=== PATIENT | female | born 1985 | race Caucasian/White ===

== ENCOUNTER 2018-11-16 05:04 | Inpatient (IN) | payer BC ==
[2018-11-16] VITALS (64 sets, daily range): BP systolic 102–142; BP diastolic 60–94
[~2018-11-16] VITALS: Ht 170.2 cm; Wt 93.9 kg
--- NOTE | 2018-11-16 05:10 | NUR ---
JOSIANE ANNA presented to unit via ambulatory from ED, accompanied by s.o , for INDUCTION. JOSIANE ANNA weighed, gowned, voided, and to bed. EFHM and TOCO applied, VS taken. JOSIANE ANNA oriented to bed controls, call light, TV, heat, and A/C controls.
[2018-11-16] MEDS ORDERED: LEVE500T99 PO (05:15)
[2018-11-16] MEDS ORDERED: PREN-53 PO (05:16)
[2018-11-16] MEDS ORDERED: MINERAL OIL CONCENTRATE 99.9% 15 ML UDC TOP PRN (05:30)
[2018-11-16 06:08] LABS: BASOPHILS % (AUTO) 0 % (0-10); EOSINOPHILS # (AUTO) 0.2 10^3/uL (0.0-0.3); EOSINOPHILS % (AUTO) 2 % (0-10); HEMATOCRIT 37 % (35-52); HEMOGLOBIN 12.5 G/DL (11.5-16.0); LYMPHOCYTES # (AUTO) 1.4 X 10^3 (1.0-4.0); LYMPHOCYTES % (AUTO) 15 % (12-44); MEAN CORPUSCULAR HEMOGLOBIN 29 PG (25-34); MEAN CORPUSCULAR HGB CONC 34 G/DL (32-36); MEAN CORPUSCULAR VOLUME 88 FL (80-99); MONOCYTES # (AUTO) 1.1 X 10^3 (0.0-1.0); MONOCYTES % (AUTO) 12 % (0-12); NEUTROPHILS # (AUTO) 6.6 X 10^3 (1.8-7.8); NEUTROPHILS % (AUTO) 71 % (42-75); PLATELET COUNT 301 10^3/uL (130-400); RED BLOOD COUNT 4.24 10^6/uL (4.35-5.85); RED CELL DISTRIBUTION WIDTH 14.5 % (10.0-14.5); WHITE BLOOD COUNT 9.2 10^3/uL (4.3-11.0)
--- NOTE | 2018-11-16 06:22 | NUR ---
Dr. Zarate called and notified of arrival of induction.
[2018-11-16] MEDS: D5 LR IV SOLUTION 1,000 ML IV SCH ×2 (06:38→14:27)
[2018-11-16] MEDS ORDERED: OXYTOCIN/NORMAL SALINE 500 ML IV ONE (07:14)
--- NOTE | 2018-11-16 07:24 | History & Physical-OB/GYN ---
History of Present Illness History of Present Illness Reason for visit/HPI Scheduled Induction of Labor at 39 weeks Date of Admission Nov 16, 2018 at 05:04 Date Seen by a Provider: Nov 16, 2018 Time Seen by a Provider: 07:10 I consulted on this patient on 11/16/18 07:19 Attending Physician Chandra Zarate DO Admitting Physician Chandra Zarate DO Consult Anesthesia for Epidural Allergies and Home Medications Allergies Coded Allergies: lamotrigine (Verified Allergy, Unknown, 11/16/18) Home Medications Docusate Sodium 100 Mg Capsule, 100 MG PO BID Prescribed by: CHANDRA ZARATE on 11/17/18 0739 Ibuprofen 800 Mg Tablet, 800 MG PO Q8HR PRN for PAIN-MILD Prescribed by: CHANDRA ZARATE on 11/17/18 0739 Levetiracetam 500 Mg Tablet, 500 MG PO BID, (Reported) Oxycodone HCl/Acetaminophen 1 Each Tablet, 1 TAB PO Q6H PRN for PAIN-MODERATE Prescribed by: CHANDRA ZARATE on 11/17/18 0739 Und087/Iron Fumarate/FA/Dss 1 Each Tablet, 1 EACH PO DAILY, (Reported) Patient Home Medication List Home Medication List Reviewed: Yes Past Vtapejw-Qgzoel-Vrgirq Hx Patient Social History Marrital Status: single Smoking Status: Never a Smoker Recent Foreign Travel: No Contact w/other who traveled: No Recent Infectious Disease Expo: No Immunizations Up To Date Date of Influenza Vaccine: Jul 16, 2018 Reproductive System Expected Date of Delivery: Nov 23, 2018 Review of Systems Constitutional: malaise, weakness Physical Exam Physical Exam Vital Signs Capillary Refill : Labs Respiratory: Lungs Clear, Normal Breath Sounds, No Respiratory Distress Cardiovascular: Regular Rate, Rhythm Abdominal: normal bowel sounds, non tender, distended (Distended secondary to , FHT 36 cm) Gynecology/General: No pelvic organ prolapse, Other (Cervix 1.5 cm/60%/-3 Vertex/Intact) Labia: WNL Vagina: WNL Cervix: Other (Cervix 1.5 cm/60%/-3 Vertex/Iintact) Cervix OS: open (Cervix 1.5 cm/60%/-3 Vertex/Intact) Uterus: Enlarged (FHT 36 cm) Assessment/Plan Assessment and Plan Intrauterine at 39 weeks 2. History of Epilepsy Admission Diagnosis Admission Status: [facility]nights[facility] Artificial Rupture of Membranes. Epidural anesthesia per patient request. External Monitoring with observation. ) Reason for Inpatient Admission: Vaginal Delivery, uncomplicated CHANDRA ZARATE DO Nov 16, 2018 07:24
[2018-11-16] MEDS ORDERED: OXYTOCIN/NORMAL SALINE 500 ML IV SCH ×2 (07:56→18:56)
--- NOTE | 2018-11-16 09:30 | NUR ---
Dr. Zarate called and update given on pt. No new orders received.
[2018-11-16] MEDS ORDERED: SUFENTA 0.6MCG/ML BUPIVA 0.125 100 ML ONE (10:04)
--- NOTE | 2018-11-16 10:10 | NUR ---
Anesthesia notified of need for epidural.
--- NOTE | 2018-11-16 10:20 | NUR ---
Avinash Bryan CRNA and LENNY MARCUS here for epidural placement. Procedure explained, consent reviewed and signed by anesthesia. Questions answered to patient's satisfaction. Time out taken to verify correct patient/procedure. Patient up to side of bed, assisted into sitting position. Betadine prep done x3 and sterile drape applied. Local done, see anesthesia record. Test dose given, see anesthesia record for drug and dosage. Epidural catheter secured in place. Epidural placement complete. Assisted back into bed, monitors adjusted. Epidural dosed, see anesthesia record. Epidural of Sufenta/Bupvicaine @ 12cc/hr stated per pump. Patient tolerated procedure well.
[2018-11-16] MEDS ORDERED: BUPIVACAINE 0.25% 30 ML (SENSORCAINE) VIAL ONE (10:27)
[2018-11-16] MEDS ORDERED: fentaNYL INJECTION 100 MCG/2 ML AMP ONE (10:27)
[2018-11-16] MEDS ORDERED: NALOXONE 0.4 MG/ML 1 ML (NARCAN) VIAL IV PRN (11:00)
[2018-11-16] MEDS ORDERED: CATHETER FLUSH 10 ML SYR IV PRN (11:00)
[2018-11-16] MEDS ORDERED: LACTATED RINGERS 1,000 ML IV ONE (11:00)
[2018-11-16] MEDS ORDERED: EPIDURAL (SUFENTA 0.6MCG/ML BUPIVA 0.125%) 100 ML BAG EPI SCH (11:00)
--- NOTE | 2018-11-16 11:45 | NUR ---
Dr. Zarate called and update given on pt. No new orders received.
[2018-11-16] MEDS ORDERED: ONDANSETRON 4 MG/2 ML (SDV) Z0FRAN ONE (12:00)
[2018-11-16] MEDS: ONDANSETRON 4 MG/2 ML (SDV) Z0FRAN IVP PRN ×2 (12:05→15:53)
--- NOTE | 2018-11-16 16:10 | NUR ---
Dr. Zarate called and updated on SVE 7cm, variable decelerations with contractions. No new orders received.
[2018-11-16] MEDS ORDERED: LIDOCAINE 1% INJ 20 ML 20 ML VIAL ONE (17:09)
[2018-11-16] MEDS ORDERED: TETANUS,DIPTH,PERTUSS P/F (BOOSTRIX) 0.5 ML VIAL IM ONE (19:00)
[2018-11-16] MEDS ORDERED: BENZOCAINE/MENTHOL (DERMOPLAST) 56 ML CAN TP PRN (19:00)
[2018-11-16] MEDS ORDERED: WITCH HAZEL(TUCKS) 40 EA JAR TOP PRN (19:00)
[2018-11-16] MEDS: IBUPROFEN 800 MG (MOTRIN) TAB PO PRN (20:38)
[2018-11-16] MEDS: DOCUSATE SODIUM 100 MG (COLACE) CAP PO SCH (21:53)
[2018-11-16] MEDS ORDERED: CATHETER FLUSH 10 ML SYR IV SCH (22:00)
[2018-11-16] MEDS: oxyCODONE/APAP 5/325MG (PERCOCET 5) TABLET PO PRN (23:39)
[2018-11-16] MEDS: CATHETER FLUSH 10 ML SYR IV SCH (23:55)
[2018-11-17 04:52] VITALS: BP 122/86
[2018-11-17] MEDS: IBUPROFEN 800 MG (MOTRIN) TAB PO PRN ×2 (04:52→12:36)
[2018-11-17 05:56] LABS: BASOPHILS % (AUTO) 0 % (0-10); EOSINOPHILS # (AUTO) 0.1 10^3/uL (0.0-0.3); EOSINOPHILS % (AUTO) 1 % (0-10); HEMATOCRIT 35 % (35-52); HEMOGLOBIN 11.5 G/DL (11.5-16.0); LYMPHOCYTES # (AUTO) 2.1 X 10^3 (1.0-4.0); LYMPHOCYTES % (AUTO) 16 % (12-44); MEAN CORPUSCULAR HEMOGLOBIN 29 PG (25-34); MEAN CORPUSCULAR HGB CONC 33 G/DL (32-36); MEAN CORPUSCULAR VOLUME 89 FL (80-99); MONOCYTES # (AUTO) 1.2 X 10^3 (0.0-1.0); MONOCYTES % (AUTO) 9 % (0-12); NEUTROPHILS % (AUTO) 74 % (42-75); PLATELET COUNT 256 10^3/uL (130-400); RED BLOOD COUNT 3.95 10^6/uL (4.35-5.85); RED CELL DISTRIBUTION WIDTH 14.5 % (10.0-14.5); WHITE BLOOD COUNT 13.5 10^3/uL (4.3-11.0)
[2018-11-17] MEDS ORDERED: PRENATAL VITAMIN 1 EA TAB PO SCH (07:00)
--- NOTE | 2018-11-17 07:00 | Anesthesia-Regional Post-Op ---
Regional Patient Condition Mental Status: Alert, Oriented x3 Circulation: Same as Pre-Op Headache: Absent Sensation: Full Recovery Motor Block: Absent Post Op Complications Complications None Follow Up Care/Instructions Patient Instructions None needed. Anesthesia/Patient Condition Patient is doing well, no complaints, stable vital signs, no apparent adverse anesthesia problems. No complications reported per nursing. ERASMO ROLAND CRNA Nov 17, 2018 07:00
--- NOTE | 2018-11-17 07:29 | OB Labor & Delivery Record ---
Vag Delivery Note Vag Delivery Note Date of Delivery: 11/17/18 Preoperative Diagnosis: Jennifer Reyes is a (33 /Para / ,Gestational Age (wks)39with [] Postoperative Diagnosis: Same Surgeon: SERVANDO WINN Measurer: [] Anesthesia: []Epidural Delivery Type: []Normal Spontaneous Vaginal Delivery with Midline Episiotomy and Standard Repair Findings: [] Viable [] infant, apgars [], weight [] Lacerations: Intact placenta with 3 vessel cord. No nuchal cord, body cord or shoulder dystocia Estimated Blood Loss: [300] ml Complications: None Condition: Stable Description of Procedure: The patient is a A1. She was admitted for Pitocin Induction of Labor. Informed consent was obtained. Her labor course was remarkable for [] She progressed to complete dilatation and began to push. She was then set up for delivery. The infant's head was delivered atraumatically in the [SERGIO] position. The shoulders and remainder of the ' s body were then delivered without difficulty. Upon delivery, the head was held below the level of the perineum and the mouth and nares were bulb suctioned. The cord was doubly clamped and cut and the was handed off to the pediatric staff. An intact placenta with 3-vessel cord delivered via Janice and there was found to be minimal bleeding.~ Vigorous fundal massage was performed and the fundus was found to be firm. IV oxytocin was given. Examination of the vagina and perineum revealed jthe midline episiotomy which was repaired in the usual fashion with 2-0 and 3-0 vicryl suture. Following the repair, sponge, instrument and needle counts were correct. Mom and baby were both in stable condition in the labor suite. Vitals - Labs Vital Signs - I&O Vital Signs Date Time Temp Pulse Resp B/P (MAP) Pulse Ox O2 Delivery O2 Flow Rate FiO2 11/17/18 04:52 98.4 101 18 122/86 (98) Room Air 11/16/18 23:39 99.2 98 18 119/79 (92) Room Air 11/16/18 20:45 98.5 114 18 125/79 (94) Room Air 11/16/18 20:30 117 18 125/78 (94) Room Air 11/16/18 20:15 112 18 125/78 (94) Room Air 11/16/18 20:00 98.0 117 18 128/79 (95) Room Air 11/16/18 19:45 121 18 122/73 (89) Room Air 11/16/18 19:30 108 18 122/68 (86) Room Air 11/16/18 19:15 98.3 104 18 117/69 (85) Room Air 11/16/18 19:00 110 18 127/77 (94) Room Air 11/16/18 18:45 107 18 127/81 (96) Room Air 11/16/18 18:30 112 18 131/84 (100) Room Air 11/16/18 18:15 107 18 131/83 (99) Room Air 11/16/18 18:00 97.1 108 18 130/69 (89) Room Air 11/16/18 17:45 144 18 128/74 (92) Room Air 11/16/18 17:30 117 18 128/72 (90) Room Air 11/16/18 17:15 98 18 126/75 (92) Non Rebreather 15.00 11/16/18 17:00 90 18 116/72 (87) Non Rebreather 15.00 11/16/18 16:45 105 18 122/74 (90) Non Rebreather 15.00 11/16/18 14:30 96.6 113 16 105/66 (79) Room Air 11/16/18 14:15 102 16 117/68 (84) Room Air 11/16/18 14:00 100 16 118/64 (82) Room Air 11/16/18 13:45 112 16 111/65 (80) Room Air 11/16/18 13:30 109 16 102/61 (75) Room Air 11/16/18 13:15 104 16 112/65 (81) Room Air 11/16/18 13:05 101 16 112/65 (81) Room Air 11/16/18 12:50 107 16 118/70 (86) Room Air 11/16/18 12:30 109 16 118/68 (85) 97 Room Air 11/16/18 12:15 106 16 117/69 (85) 99 Room Air 11/16/18 12:00 106 16 125/69 (87) 100 Room Air 11/16/18 11:43 117 16 106/60 (75) 99 Room Air 11/16/18 11:38 117 16 117/70 (86) 100 Room Air 11/16/18 11:32 101 16 127/70 (89) 100 Room Air 11/16/18 11:28 109 16 124/75 (91) 98 Room Air 11/16/18 11:23 104 16 128/72 (90) 98 Room Air 11/16/18 11:17 115 16 118/75 (89) 99 Room Air 11/16/18 11:15 98 16 120/75 (90) 99 Room Air 11/16/18 11:12 110 16 123/78 (93) 99 Room Air 11/16/18 11:10 100 16 120/70 (87) 99 Room Air 11/16/18 11:06 119 16 121/70 (87) 99 Room Air 11/16/18 11:03 107 16 130/73 (92) 96 Room Air 11/16/18 11:00 97.6 112 18 137/79 (98) 96 Room Air 11/16/18 10:56 111 18 142/84 (103) 99 Room Air 11/16/18 10:53 102 18 134/86 (102) Room Air 11/16/18 10:50 111 20 141/91 (108) 100 Room Air 11/16/18 10:43 107 18 139/75 (96) 99 Room Air 11/16/18 10:40 96 18 140/92 (108) 100 Room Air 11/16/18 10:36 101 20 140/92 (108) Room Air 11/16/18 10:33 99 18 139/94 (109) 100 Room Air 11/16/18 10:30 99 16 132/84 (100) 97 Room Air 11/16/18 10:20 88 16 126/82 (97) Room Air 11/16/18 10:05 93 16 132/85 (101) Room Air 11/16/18 09:50 93 16 127/83 (98) Room Air 11/16/18 09:35 92 16 120/77 (91) Room Air 11/16/18 09:20 88 16 118/74 (89) Room Air 11/16/18 09:05 97.4 100 18 117/75 (89) Room Air 11/16/18 08:50 96 18 126/83 (97) Room Air 11/16/18 08:35 90 18 125/85 (98) Room Air 11/16/18 08:20 88 18 119/86 (97) Room Air 11/16/18 08:05 85 18 119/76 (90) Room Air 11/16/18 07:50 101 18 122/90 (101) Room Air 11/16/18 07:35 91 16 121/85 (97) Room Air I & O 11/17/18 07:00 Intake Total 3300 ml Balance 3300 ml Labs Laboratory Tests 11/17/18 05:22: White Blood Count 13.5H, Red Blood Count 3.95L, Hemoglobin 11.5, Hematocrit 35, Mean Corpuscular Volume 89, Mean Corpuscular Hemoglobin 29, Mean Corpuscular Hemoglobin Concent 33, Red Cell Distribution Width 14.5, Platelet Count 256, Mean Platelet Volume 10.0, Neutrophils (%) (Auto) 74, Lymphocytes (%) (Auto) 16 , Monocytes (%) (Auto) 9, Eosinophils (%) (Auto) 1, Basophils (%) (Auto) 0, Neutrophils # (Auto) 10.0H, Lymphocytes # (Auto) 2.1, Monocytes # (Auto) 1.2H, Eosinophils # (Auto) 0.1, Basophils # (Auto) 0.0 SERVANDO WINN DO Nov 17, 2018 07:29
[2018-11-17] MEDS ORDERED: OXYC1TAB87 PO (07:39)
[2018-11-17] MEDS ORDERED: DOCU100C37 PO (07:39)
[2018-11-17] MEDS ORDERED: IBUP-1780 PO (07:39)
[2018-11-17 08:15] VITALS: BP 108/72
[2018-11-17] MEDS: oxyCODONE/APAP 5/325MG (PERCOCET 5) TABLET PO PRN ×4 (08:19→17:15)
[2018-11-17] MEDS: DOCUSATE SODIUM 100 MG (COLACE) CAP PO SCH (08:19)
[2018-11-17] MEDS ORDERED: HYDROCORTISONE 2.5% CREAM (ANUSOL-HC) 30 GM TOP SCH (10:00)
--- NOTE | 2018-11-17 12:30 | NUR ---
Pt in tears due to pain from episiotomy and hemorrhoids. 2 small hemorrhoids noted on am rounds. Anusol cream given at bedside with instructions to apply to outer rectum. Pt using ice, víctor bottle and witch elenita pads. Pt obtained relief only after Ibuprofen, Percocet and passing of large amount of flatus.
[2018-11-17 16:05] VITALS: BP 102/66
[2018-11-17] MEDS ORDERED: TETANUS,DIPTH,PERTUSS P/F (BOOSTRIX) 0.5 ML VIAL IM ONE (16:42)
--- NOTE | 2018-11-17 18:23 | NUR ---
Discharge instructions given to mom - verbal and written. Verbalizes understanding. Awaiting bilirubin results on baby.
--- NOTE | 2018-11-17 19:55 | NUR ---
Pt placed in w'c and taken down to pvt car. no distress noted. pt will follow up in clinic. pt dc'd home with s/o and .
--- NOTE | 2018-11-21 13:51 | Physician Query-Final Dx ---
Final Diagnosis Give Final Diagnosis Please give Final Diagnosis MAYRA SMITH Nov 21, 2018 13:51
== END 2018-11-17 19:55 | disposition home or self-care (01) | DRG 807 ==
LOC: LDRP 05:04
PROVIDERS: ADMIT Obstetrics & Gynecology; ATTEND Obstetrics & Gynecology
PROC: 3E033VJ Introduction of Other Hormone into Peripheral Vein, Percutaneous Approach (ICD-10-PCS; 2018-11-16)
PROC: 10E0XZZ Delivery of Products of Conception, External Approach (ICD-10-PCS; principal; 2018-11-17)
PROC: 0W8NXZZ Division of Female Perineum, External Approach (ICD-10-PCS; 2018-11-17)
DX: O99.354 Diseases of the nervous system complicating childbirth (principal); G40.909 Epilepsy, unspecified, not intractable, without status epilepticus; Z3A.39 39 weeks gestation of pregnancy; Z37.0 Single live birth
CPT/HCPCS: 36415; 85025; 86850; 86900; 86901; 90715

== ENCOUNTER → 2022-12-13 | Outpatient (CLI) | payer OTHER ==
[~2022-12-13] MED LIST: DOCU100C37 PO; IBUP-1780 PO; LEVE500T99 PO; OXYC1TAB87 PO; PREN-53 PO
[2022-12-13 12:52] LABS: BASOPHILS % (AUTO) 0 % (0-10); EOSINOPHILS # (AUTO) 0.1 10^3/uL (0.0-0.3); EOSINOPHILS % (AUTO) 2 % (0-10); HEMATOCRIT 38 % (35-52); HEMOGLOBIN 12.5 g/dL (11.5-16.0); LYMPHOCYTES # (AUTO) 2.1 10^3/uL (1.0-4.0); LYMPHOCYTES % (AUTO) 24 % (12-44); MEAN CORPUSCULAR HEMOGLOBIN 29 pg (25-34); MEAN CORPUSCULAR HGB CONC 33 g/dL (32-36); MEAN CORPUSCULAR VOLUME 86 fL (80-99); MEAN PLATELET VOLUME 9.9 fL (9.0-12.2); MONOCYTES # (AUTO) 0.5 10^3/uL (0.0-1.0); MONOCYTES % (AUTO) 6 % (0-12); NEUTROPHILS % (AUTO) 68 % (42-75); PLATELET COUNT 305 10^3/uL (130-400); WHITE BLOOD COUNT 8.7 10^3/uL (4.3-11.0)
== END ==
LOC: LAB FS 12:21
PROVIDERS: ATTEND Family Medicine
DX: N92.4 Excessive bleeding in the premenopausal period (principal)
CPT/HCPCS: 36415; 84443; 85025

== ENCOUNTER 2023-08-25 05:58 | Emergency (ER) | payer OTHER ==
[~2023-08-25] VITALS: Ht 170.2 cm; Wt 88.5 kg
--- NOTE | 2023-08-25 06:23 | ED GU-Female ---
General Chief Complaint: OB < 20 WEEKS Stated Complaint: ABD PAIN Nursing Triage Note: PT TO RM 5 VIA [facility] EMS FROM [facility] ER. PT TRANSFERRED TO ED TO RULE OUT ECTOPIC . OTHER POSS OF KIDNEY STONES, PT C/O RLQ PAIN THAT RADIATES TO RIGHT FLANK CONSTANT SX 2200. LMP 07/27/23, A&OX4. 18G LAC SL INITIATED BY [facility] [place], PATENT UPON ARRIVAL TO ED. EMS ADMIN ADDITIONAL 4MG ZOFRAN IVP. Source: patient, RN/MD Exam Limitations: no limitations History of Present Illness Date Seen by Provider: Aug 25, 2023 Time Seen by Provider: 06:00 Initial Comments 37yoF with PMH of kidney stones coming in via EMS as a transfer from [facility] due to concerns for right flank pain and right lower quadrant pain. Started around 10:30 PM last night. She took a hydrocodone at home. She had nb/nb vomiting numerous times. Denies fever. She says she is two days late for her period. On arrival to [facility] her test was positive. They do not have ultrasound available at their facility. She received morphine, fentanyl, Dilaudid, bolus of IV fluids, and Zofran x2. Urinalysis there was negative for infection, did have blood. Her white blood cell count was slightly elevated, test positive, creatinine was normal, ESR and CRP were normal. She is still in a large amount of pain. She does not have a urologist that she sees. Otherwise denying any other acute complaints. LMP was 07/27/23. Allergies and Home Medications Allergies Coded Allergies: lamotrigine (Verified Allergy, Unknown, 11/16/18) Patient Home Medication List Home Medication List Reviewed: Yes Docusate Sodium (Docusate Sodium) 100 Mg Capsule, 100 MG PO BID Prescribed by: SERVANDO WINN on 11/17/18 0739 Ibuprofen (Ibuprofen) 800 Mg Tablet, 800 MG PO Q8HR PRN for PAIN-MILD Prescribed by: SERVANDO WINN on 11/17/18 0739 Levetiracetam (Keppra) 500 Mg Tablet, 500 MG PO BID, (Reported) Entered as Reported by: PEPITO SANTAMARIA on 11/16/18 0515 Oxycodone HCl/Acetaminophen (Percocet 5-325 mg Tablet) 1 Each Tablet, 1 TAB PO Q6H PRN for PAIN-MODERATE Prescribed by: SERVANDO WINN on 11/17/18 0739 Iho540/Iron Fumarate/FA/Dss ( 19 Tablet) 1 Each Tablet, 1 EACH PO DAILY, (Reported) Entered as Reported by: PEPITO SANTAMARIA on 11/16/18 0516 Review of Systems Review of Systems Constitutional: No fever EENTM: no symptoms reported Respiratory: no symptoms reported Cardiovascular: no symptoms reported Gastrointestinal: see HPI Genitourinary: see HPI Musculoskeletal: no symptoms reported Skin: no symptoms reported Psychiatric/Neurological: No Symptoms Reported Endocrine: No Symptoms Reported Past Ogorqrm-Ynycgb-Lfsnlk Hx Patient Social History Tobacco Use?: No Use of E-Cig and/or Vaping dev: No Substance use?: No Alcohol Use?: No Seasonal Allergies Seasonal Allergies: No Past Medical History Surgery/Hospitalization HX: KIDNEY STONES Surgeries: No Respiratory: No Cardiac: No Neurological: Yes (Epilepsy) Last Menstrual Period: Jul 27, 2023 Sexually Transmitted Disease: No HIV/AIDS: No Genitourinary: Yes (2 right ureters, cystocele) Kidney Stones Gastrointestinal: No Musculoskeletal: No Endocrine: No HEENT: No Cancer: No Psychosocial: No Integumentary: No Blood Disorders: No Adverse Reaction/Blood Tranf: No Family Medical History Clubfoot G8 BROTHER Thyroid disease G8 BROTHER Physical Exam Vital Signs Vital Signs - First Documented 08/25/23 05:58 Temp 36.3 Pulse 101 Resp 20 B/P (MAP) 146/94 (111) Pulse Ox 100 O2 Delivery Room Air Capillary Refill : Less Than 3 Seconds Height, Weight, BMI Height: 5'7.00" Weight: 207lbs. 0.0oz. 93.474518go; 30.00 BMI Method: General Appearance: WD/WN, mild distress HEENT: PERRL/EOMI, normal ENT inspection, pharynx normal Neck: non-tender, full range of motion, supple, normal inspection Cardiovascular: regular rate, rhythm, no edema Respiratory: chest non-tender, lungs clear, normal breath sounds, no respiratory distress, no accessory muscle use Gastrointestinal: normal bowel sounds, non tender, soft; No distended, No guarding, No rebound Back: normal inspection, CVA tenderness (R); No CVA tenderness (L) Extremities: normal range of motion, non-tender, normal inspection, no pedal edema, no calf tenderness, normal capillary refill Neurologic/Psychiatric: no motor/sensory deficits, alert, normal mood/affect Skin: normal color, warm/dry Progress/Results/Core Measures Suspected Sepsis SIRS Temperature: Pulse: 101 Respiratory Rate: 20 Blood Pressure 146 /94 Mean: 111 Results/Orders Lab Results Laboratory Tests Test 08/25/23 06:31 Range/Units Human Chorionic Gonadotropin, Quant 29 H <5 MIU/ML My Orders Orders - CURLY SEGUNDO MD Hcg,Quantitative (08/25/23 06:18) Us Ob Transvaginal 09811 (08/25/23 06:18) Hydromorphone Injection (Hydromorphone (08/25/23 06:30) Us Renal Bilateral 09996 (08/25/23 06:18) Promethazine Injection (Promethazine I (08/25/23 08:30) Hydromorphone Injection (Hydromorphone (08/25/23 09:00) Medications Given in ED Current Medications Medications Dose Ordered Sig/Mehran Route Start Time Stop Time Status Last Admin Dose Admin Hydromorphone HCl 1 mg ONCE ONCE IV 08/25/23 09:00 08/25/23 09:01 DC 08/25/23 09:02 1 MG Hydromorphone HCl 1 mg ONCE PRN IV 08/25/23 06:30 08/25/23 08:55 1 MG Promethazine HCl 25 mg ONCE ONCE IVP 08/25/23 08:30 08/25/23 08:31 DC 08/25/23 08:34 25 MG Vital Signs/I&O 08/25/23 08/25/23 05:58 08:55 Temp 36.3 36.3 Pulse 101 Resp 20 B/P (MAP) 146/94 (111) Pulse Ox 100 O2 Delivery Room Air Capillary Refill : Less Than 3 Seconds Blood Pressure Mean: 111 Progress Note : Progress Note 37-year-old female with above history coming in due to right lower quadrant pain radiating from the right flank. ABCs were intact and vitals were stable on presentation. An IV was put in place already from the other hospital. I reviewed all of the labs that were drawn there, her white blood cell count was slightly elevated, creatinine normal, urine test negative, urinalysis negative for infection. I did a wwlmz-pa-znbc ultrasound here showing hydronephrosis on the right and no intrauterine that is obvious. Her LMP was just at a month ago, likely too early to show intrauterine . We will order a formal ultrasound transvaginal for OB as well as a renal ultrasound. She was given repeat IV Dilaudid doses herehere for pain control with frequent reassessment. Beta-hCG in the 20s, this fits where she would be with her LMP. Transvaginal ultrasound with no definitive intrauterine and no ectopic. They recommend repeat beta-hCG and repeat imaging. Renal ultrasound with hydronephrosis and likely ureterocele. No obvious stone visualized on ultrasound at least. At this point, I offered to transfer the patient to a different facility with urology versus going home for symptomatic management and outpatient urologic follow-up. She would like to go home. She will be sent prescriptions for pain medicines as well as nausea medicines. Diagnostic Imaging Diagonstic Imaging: Ultrasound (transvaginal OB and renal) Comments NAME: [facility] REC#: [id number] PT STATUS: REG ER : 1985 PHYSICIAN: CURLY SEGUNDO MD ADMIT DATE: 08/25/23/ER Draft Date of Exam:08/25/23 US OB TRANSVAGINAL [id number] Technique: Live grayscale and color Doppler ultrasound was performed of the pelvis both transabdominally and endovaginally. Reason for exam: Positive test. Right lower quadrant pain. COMPARISON: None. FINDINGS: No evidence of intrauterine or ectopic . The uterus measures 9.2 x 4.0 x 5.1 cm with the endometrial stripe measuring 1.2 cm in thickness. There is a small hypoechoic area within the endometrium with possible associated calcification. The right ovary measures 2.6 x 1.3 x 3.0 cm and the left measures 2.0 x 1.2 x 2.7 cm. A cyst is seen off the left ovary measuring 1.3 x 0.8 x 1.2 cm. No adnexal mass or torsion. No free fluid. Note is made of a cystic structure in the floor of the bladder on the right measuring 2.3 x 1.2 cm. IMPRESSION: 1. No evidence of intrauterine or ectopic . There is a small hypoechoic area within the endometrium which is indeterminate. Recommend continued follow-up with serial beta hCGs and pelvic ultrasound as indicated. 2. Dominant follicle/cyst in the left ovary. No adnexal mass or torsion. No free fluid. 3. Findings suggestive of a right-sided ureterocele within the urinary bladder. Recommend correlation with patient history. Dictated on workstation # [id number] Dict: 08/25/2355 Trans: 08/25/23905 [id number] Interpreted by: VERONICA MEADOWS DO Electronically signed by: LUIS VIA [place], [place] NAME: [facility] REC#: [id number] PT STATUS: REG ER : 1985 PHYSICIAN: CURLY SEGUNDO MD ADMIT DATE: 08/25/23/ER Draft Date of Exam:08/25/23 US RENAL BILATERAL [id number] PROCEDURE: US Renal Bilateral. TECHNIQUE: Multiple real-time grayscale images were obtained over the kidneys in various projections bilaterally. INDICATION: Right lower quadrant pain and right flank pain. FINDINGS: Right kidney measures 11.0 x 6.2 x 6.7 cm and the left kidney measures 11.5 x 5.0 x 5.5 cm. There is marked right-sided hydronephrosis with some dilatation of the proximal right ureter as well. No definite calculi are seen. Left kidney is unremarkable. No left-sided hydronephrosis or calculi are detected. The bladder images are on the OB study. Prevoid bladder volume is 327 mL. There is a cystic structure near the UVJ on the right side, suggestive of a ureterocele. No ureteral jet on the right side is identified. IMPRESSION: Significant right-sided hydro-nephrosis. There is a probable ureterocele at the right UVJ. No definite calculi are detected. Dictated on workstation # [id number] Dict: 08/25/2356 Trans: 08/25/23911 [id number] Interpreted by: KAYY SMITH MD Electronically signed by: Departure Impression Primary Impression: Hydronephrosis Qualified Codes: N13.39 - Other hydronephrosis Additional Impressions: Qualified Codes: Z3A.01 - Less than 8 weeks gestation of Right flank pain Disposition: 01 HOME, SELF-CARE Condition: Stable Departure-Patient Inst. Decision time for Depature: 09:45 Referrals: SOURAV CHARLES MD (PCP/Family) Primary Care Physician Patient Instructions: Hydronephrosis, Adult (DC) Add. Discharge Instructions: It is still very possible you have a kidney stone on the right. The stone itself was not visualized on the ultrasound which often happens. Your beta-hCG was only in the 20s which fits with you barely being . The ultrasound that was done transvaginally was negative for ectopic, but they were unable to visualize an intrauterine yet. You need to get a repeat beta-hCG in the next couple of days and a repeat ultrasound probably in the next week or so if you are continuing to have pain in your lower abdomen. Take the oxycodone that was sent to your pharmacy as needed for pain. You can also take Tylenol. Since you are , do not take ibuprofen or naproxen. Nausea medicines were sent to your pharmacy as well. Start with the Zofran, if you have nausea on top of that then you can take the Phenergan. NAME: [facility] REC#: [id number] PT STATUS: REG ER : 1985 PHYSICIAN: CURLY SEGUNDO MD ADMIT DATE: 08/25/23/ER Draft Date of Exam:08/25/23 US OB TRANSVAGINAL [id number] Technique: Live grayscale and color Doppler ultrasound was performed of the pelvis both transabdominally and endovaginally. Reason for exam: Positive test. Right lower quadrant pain. COMPARISON: None. FINDINGS: No evidence of intrauterine or ectopic . The uterus measures 9.2 x 4.0 x 5.1 cm with the endometrial stripe measuring 1.2 cm in thickness. There is a small hypoechoic area within the endometrium with possible associated calcification. The right ovary measures 2.6 x 1.3 x 3.0 cm and the left measures 2.0 x 1.2 x 2.7 cm. A cyst is seen off the left ovary measuring 1.3 x 0.8 x 1.2 cm. No adnexal mass or torsion. No free fluid. Note is made of a cystic structure in the floor of the bladder on the right measuring 2.3 x 1.2 cm. IMPRESSION: 1. No evidence of intrauterine or ectopic . There is a small hypoechoic area within the endometrium which is indeterminate. Recommend continued follow-up with serial beta hCGs and pelvic ultrasound as indicated. 2. Dominant follicle/cyst in the left ovary. No adnexal mass or torsion. No free fluid. 3. Findings suggestive of a right-sided ureterocele within the urinary bladder. Recommend correlation with patient history. Dictated on workstation # [id number] Dict: 08/25/2355 Trans: 08/25/23905 [id number] Interpreted by: VERONICA MEADOWS DO Electronically signed by: LUIS [facility] [place], [place] NAME: [facility] REC#: [id number] PT STATUS: REG ER : 1985 PHYSICIAN: CURLY SEGUNDO MD ADMIT DATE: 08/25/23/ER Draft Date of Exam:08/25/23 US RENAL BILATERAL [id number] PROCEDURE: US Renal Bilateral. TECHNIQUE: Multiple real-time grayscale images were obtained over the kidneys in various projections bilaterally. INDICATION: Right lower quadrant pain and right flank pain. FINDINGS: Right kidney measures 11.0 x 6.2 x 6.7 cm and the left kidney measures 11.5 x 5.0 x 5.5 cm. There is marked right-sided hydronephrosis with some dilatation of the proximal right ureter as well. No definite calculi are seen. Left kidney is unremarkable. No left-sided hydronephrosis or calculi are detected. The bladder images are on the OB study. Prevoid bladder volume is 327 mL. There is a cystic structure near the UVJ on the right side, suggestive of a ureterocele. No ureteral jet on the right side is identified. IMPRESSION: Significant right-sided hydro-nephrosis. There is a probable ureterocele at the right UVJ. No definite calculi are detected. Dictated on workstation # [id number] Dict: 08/25/2356 Trans: 08/25/23911 [id number] Interpreted by: KAYY SMITH MD Electronically signed by: Mariusz Promethazine HCl (Promethazine Tablet) 25 Mg Tablet 25 MG PO Q6H PRN for NAUSEA/VOMITING-2ND LINE for 5 Days, #20 TAB Prov: CURLY SEGUNDO MD 08/25/23 Ondansetron (Ondansetron Odt) 4 Mg Tab.rapdis 4 MG SL Q6H PRN for NAUSEA/VOMITING-1ST LINE for 5 Days, #20 TAB Prov: CURLY SEGUNDO MD 08/25/23 Oxycodone HCl (Oxycodone HCl) 5 Mg Tablet 5 MG PO Q6H PRN for PAIN-MODERATE TO SEVERE for 4 Days, #16 TAB Prov: CURLY SEGUNDO MD 08/25/23 Work/School Note: Family Work Note, Patient Received Medical Care In the Emergency Department On: Aug 25, 2023 Patient Will Be Able to Return to Work/School On: Aug 26, 2023 Work Release Form Date Seen in the Emergency Department: Aug 25, 2023 Return to Work: Aug 27, 2023 Restrictions: Return-No Vomiting(24hrs) CURLY SEGUNDO MD Aug 25, 2023 06:23
[2023-08-25] MEDS: HYDROmorphone INJECTION 2 MG/ML VIAL IV PRN ×2 (06:33→08:55)
[2023-08-25] MEDS ORDERED: PROMETHAZINE INJ 25 MG/ML VIAL IVP ONE (08:30)
[2023-08-25] MEDS ORDERED: HYDROmorphone INJECTION 2 MG/ML VIAL IV ONE (09:00)
--- NOTE | 2023-08-25 09:07 | Diagnostic Imaging Report ---
Technique: Live grayscale and color Doppler ultrasound was performed of the pelvis both transabdominally and endovaginally. Reason for exam: Positive test. Right lower quadrant pain. COMPARISON: None. FINDINGS: No evidence of intrauterine or ectopic . The uterus measures 9.2 x 4.0 x 5.1 cm with the endometrial stripe measuring 1.2 cm in thickness. There is a small hypoechoic area within the endometrium with possible associated calcification. The right ovary measures 2.6 x 1.3 x 3.0 cm and the left measures 2.0 x 1.2 x 2.7 cm. A cyst is seen off the left ovary measuring 1.3 x 0.8 x 1.2 cm. No adnexal mass or torsion. No free fluid. Note is made of a cystic structure in the floor of the bladder on the right measuring 2.3 x 1.2 cm. IMPRESSION: 1. No evidence of intrauterine or ectopic . There is a small hypoechoic area within the endometrium which is indeterminate. Recommend continued follow-up with serial beta hCGs and pelvic ultrasound as indicated. 2. Dominant follicle/cyst in the left ovary. No adnexal mass or torsion. No free fluid. 3. Findings suggestive of a right-sided ureterocele within the urinary bladder. Recommend correlation with patient history. Dictated by: Dictated on workstation # [id number]
--- NOTE | 2023-08-25 09:12 | Diagnostic Imaging Report ---
PROCEDURE: US Renal Bilateral. TECHNIQUE: Multiple real-time grayscale images were obtained over the kidneys in various projections bilaterally. INDICATION: Right lower quadrant pain and right flank pain. FINDINGS: Right kidney measures 11.0 x 6.2 x 6.7 cm and the left kidney measures 11.5 x 5.0 x 5.5 cm. There is marked right-sided hydronephrosis with some dilatation of the proximal right ureter as well. No definite calculi are seen. Left kidney is unremarkable. No left-sided hydronephrosis or calculi are detected. The bladder images are on the OB study. Prevoid bladder volume is 327 mL. There is a cystic structure near the UVJ on the right side, suggestive of a ureterocele. No ureteral jet on the right side is identified. IMPRESSION: Significant right-sided hydro-nephrosis. There is a probable ureterocele at the right UVJ. No definite calculi are detected. Dictated by: Dictated on workstation # [id number]
[2023-08-25] MEDS ORDERED: ONDA4TAB11 SL (09:39)
[2023-08-25] MEDS ORDERED: OXYC5TAB PO (09:39)
[2023-08-25] MEDS ORDERED: PROM25TA14 PO (09:39)
[2023-08-25 10:00] VITALS: BP 134/82
== END 2023-08-25 10:00 | disposition home or self-care (01) ==
LOC: EDUNIT# 05:58 → ER 06:01
DX: O26.831 Pregnancy related renal disease, first trimester (principal); N13.30 Unspecified hydronephrosis; O09.521 Supervision of elderly multigravida, first trimester
CPT/HCPCS: 36415; 76770; 76817; 84702

== ENCOUNTER 2023-08-26 20:28 | Emergency (ER) | payer OTHER ==
[~2023-08-26] VITALS: Ht 170.1 cm; Wt 87.5 kg
[~2023-08-26 20:28] MED LIST changes: +ONDA4TAB11 SL; +OXYC5TAB PO; +PROM25TA14 PO
[2023-08-26] MEDS ORDERED: NS IV 1000 ML 1,000 ML IV STA ×3 (20:33→22:27)
[2023-08-26 20:37] VITALS: BP 116/71
--- NOTE | 2023-08-26 20:47 | ED GU-Female ---
General Chief Complaint: Fever-Adult/Adol Stated Complaint: FEVER, NAUSEA, BODY ACHES, 4 WEEKS Source: patient Exam Limitations: no limitations History of Present Illness Date Seen by Provider: Aug 26, 2023 Time Seen by Provider: 20:43 Initial Comments Patient is a 37-year-old female who is G5, P2 presents to ED for fever chills body aches weakness and some frequent urination. Patient states she was seen here yesterday. Concern for potential kidney stone with early . She states she ended up passing the stone last night. As she was having severe right lower quadrant and right flank pain. They did bring the stone with him. Since then she has had fever chills body aches weakness and frequent urination. She reports temperature 103. Has been taken Tylenol last dose around 1:30 PM. She was seen at the clinic today sent to the ED concern for pyelonephritis as she had an abnormal urinalysis. She denies any cough, runny nose, sore throat, headache, dizziness. She states she does not feel well. She has not had any pain since passing of the stone last night. She did receive Rocephin at [facility]. She does report nausea without vomiting or diarrhea. No current vaginal bleeding. She did have a transvaginal ultrasound which did not note any intrauterine or ectopic . She did have a beta quant level slightly elevated at 29. Patient last menstrual cycle was July 27. Allergies and Home Medications Allergies Coded Allergies: lamotrigine (Verified Allergy, Unknown, 11/16/18) Patient Home Medication List Home Medication List Reviewed: Yes Docusate Sodium (Docusate Sodium) 100 Mg Capsule, 100 MG PO BID Prescribed by: SERVANDO WINN on 11/17/18 0739 Ibuprofen (Ibuprofen) 800 Mg Tablet, 800 MG PO Q8HR PRN for PAIN-MILD Prescribed by: SERVANDO WINN on 11/17/18 0739 Levetiracetam (Keppra) 500 Mg Tablet, 500 MG PO BID, (Reported) Entered as Reported by: PEPITO SANTAMARIA on 11/16/18 0515 Ondansetron (Ondansetron Odt) 4 Mg Tab.rapdis, 4 MG SL Q6H PRN for NAUSEA/VOMITING-1ST LINE Prescribed by: CURLY SEGUNDO on 08/25/23 0939 Oxycodone HCl (Oxycodone HCl) 5 Mg Tablet, 5 MG PO Q6H PRN for PAIN-MODERATE TO SEVERE Prescribed by: CURLY SEGUNDO on 08/25/23 09 Oxycodone HCl/Acetaminophen (Percocet 5-325 mg Tablet) 1 Each Tablet, 1 TAB PO Q6H PRN for PAIN-MODERATE Prescribed by: SERVANDO WINN on 11/17/18 0739 Dmu120/Iron Fumarate/FA/Dss ( 19 Tablet) 1 Each Tablet, 1 EACH PO DAILY, (Reported) Entered as Reported by: PEPITO SANTAMARIA on 11/16/18 0516 Promethazine HCl (Promethazine Tablet) 25 Mg Tablet, 25 MG PO Q6H PRN for NAUSEA/VOMITING-2ND LINE Prescribed by: CURLY SEGUNDO on 08/25/23 0939 Review of Systems Review of Systems Constitutional: chills, fever, malaise, weakness EENTM: No ear pain, No blurred vision, No double vision Respiratory: No cough, No dyspnea on exertion Cardiovascular: No chest pain Gastrointestinal: No abdominal pain, No diarrhea, No nausea, No vomiting Genitourinary: denies burning, denies discharge, denies dysuria; frequency Musculoskeletal: No back pain, No joint pain All Other Systemes Reviewed Negative Unless Noted: Yes Past [id number]-Dbtahg Hx Patient Social History Tobacco Use?: No Substance use?: No Alcohol Use?: No Seasonal Allergies Seasonal Allergies: No Past Medical History Surgery/Hospitalization HX: KIDNEY STONES Surgeries: No Respiratory: No Cardiac: No Neurological: Yes (Epilepsy) Sexually Transmitted Disease: No HIV/AIDS: No Genitourinary: Yes (2 right ureters, cystocele) Kidney Stones Gastrointestinal: No Musculoskeletal: No Endocrine: No HEENT: No Cancer: No Psychosocial: No Integumentary: No Blood Disorders: No Adverse Reaction/Blood Tranf: No Family Medical History Clubfoot G8 BROTHER Thyroid disease G8 BROTHER Physical Exam Vital Signs Vital Signs - First Documented 08/26/23 20:37 Temp 38.6 Pulse 128 B/P (MAP) 116/71 (86) Pulse Ox 99 O2 Delivery Room Air Capillary Refill : Height, Weight, BMI Height: 5'7.00" Weight: 207lbs. 0.0oz. [id number]; 30.00 BMI Method: General Appearance: WD/WN, no apparent distress HEENT: PERRL/EOMI, normal ENT inspection, TMs normal, pharynx normal Neck: non-tender, full range of motion, supple Cardiovascular: regular rate, rhythm, no edema, no gallop, no JVD Respiratory: chest non-tender, lungs clear, normal breath sounds, no r espiratory distress, no accessory muscle use Gastrointestinal: normal bowel sounds, non tender, soft, no organomegaly Pelvic: normal external exam Back: normal inspection, no CVA tenderness, no vertebral tenderness Extremities: normal range of motion, non-tender, normal inspection, no pedal edema 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, no motor/sensory deficits, alert, normal mood/affect, oriented x 3 Skin: normal color, warm/dry Focused Exam Lactate Level 08/26/23 20:38: Lactic Acid Level 2.00 Lactic Acid Level Progress/Results/Core Measures Suspected Sepsis SIRS Temperature: Pulse: Respiratory Rate: Laboratory Tests 08/26/23 20:58: White Blood Count 16.9H Blood Pressure / Mean: 08/26/23 20:38: Lactic Acid Level 2.00 Laboratory Tests 08/26/23 20:58: Creatinine 1.13, Platelet Count 251, Total Bilirubin 0.9 Results/Orders Lab Results Laboratory Tests Test 08/26/23 20:38 08/26/23 20:53 08/26/23 20:58 Range/Units Lactic Acid Level 2.00 0.50-2.00 MMOL/L Influenza Type A (RT-PCR) Not Detected Not Detecte Influenza Type B (RT-PCR) Not Detected Not Detecte SARS-CoV-2 RNA (RT-PCR) Not Detected Not Detecte Urine Color YELLOW Urine Clarity CLEAR Urine pH 6.0 5-9 Urine Specific [place] >=1.030 1.016-1.022 Urine Protein 3+ H NEGATIVE Urine Glucose (UA) NEGATIVE NEGATIVE Urine Ketones 3+ H NEGATIVE Urine Nitrite NEGATIVE NEGATIVE Urine Bilirubin 1+ H NEGATIVE Urine Urobilinogen 1.0 < = 1.0 MG/DL Urine Leukocyte Esterase 1+ H NEGATIVE Urine RBC (Auto) 1+ H NEGATIVE Urine RBC 5-10 H /HPF Urine WBC TNTC H /HPF Urine Squamous Epithelial Cells 5-10 /HPF Urine Crystals NONE /LPF Urine Bacteria MODERATE H /HPF Urine Casts NONE /LPF Urine White Blood Cell Casts /LPF Urine Mucus NEGATIVE /LPF Urine Culture Indicated YES White Blood Count 16.9 H 4.3-11.0 10^3/uL Red Blood Count 4.75 3.80-5.11 10^6/uL Hemoglobin 13.9 11.5-16.0 g/dL Hematocrit 42 35-52 % Mean Corpuscular Volume 88 80-99 fL Mean Corpuscular Hemoglobin 29 25-34 pg Mean Corpuscular Hemoglobin Concent 33 32-36 g/dL Red Cell Distribution Width 12.6 10.0-14.5 % Platelet Count 251 130-400 10^3/uL Mean Platelet Volume 9.7 9.0-12.2 fL Immature Granulocyte % (Auto) 1 % Neutrophils (%) (Auto) 91 H 42-75 % Lymphocytes (%) (Auto) 3 L 12-44 % Monocytes (%) (Auto) 5 0-12 % Eosinophils (%) (Auto) 0 0-10 % Basophils (%) (Auto) 0 0-10 % Neutrophils # (Auto) 15.3 H 1.8-7.8 10^3/uL Lymphocytes # (Auto) 0.5 L 1.0-4.0 10^3/uL Monocytes # (Auto) 0.8 0.0-1.0 10^3/uL Eosinophils # (Auto) 0.0 0.0-0.3 10^3/uL Basophils # (Auto) 0.0 0.0-0.1 10^3/uL Immature Granulocyte # (Auto) 0.2 H 0.0-0.1 10^3/uL Neutrophils % (Manual) 90 % Lymphocytes % (Manual) 5 % Monocytes % (Manual) 4 % Band Neutrophils 1 % Blood Morphology Comment NORMAL Sodium Level 136 135-145 MMOL/L Potassium Level 3.0 L 3.6-5.0 MMOL/L Chloride Level 105 98-107 MMOL/L Carbon Dioxide Level 21 21-32 MMOL/L Anion Gap 10 5-14 MMOL/L Blood Urea Nitrogen 11 7-18 MG/DL Creatinine 1.13 0.60-1.30 MG/DL Estimat Glomerular Filtration Rate 63 BUN/Creatinine Ratio 10 Glucose Level 142 H 70-105 MG/DL Calcium Level 9.0 8.5-10.1 MG/DL Corrected Calcium 9.2 8.5-10.1 MG/DL Total Bilirubin 0.9 0.1-1.0 MG/DL Aspartate Amino Transf (AST/SGOT) 44 H 5-34 U/L Alanine Aminotransferase (ALT/SGPT) 52 0-55 U/L Alkaline Phosphatase 88 40-136 U/L C-Reactive Protein High Sensitivity 30.52 H 0.00-0.50 MG/DL Total Protein 7.2 6.4-8.2 GM/DL Albumin 3.7 3.2-4.5 GM/DL Lipase 7 L 8-78 U/L Human Chorionic Gonadotropin, Quant 31 H <5 MIU/ML Micro Results Microbiology 08/26/23 Urine Culture - Preliminary, Resulted Culture In Progress My Orders Orders - CURLY WAREid 19 Inhouse Test (08/26/23 20:33) Influenza A And B By Pcr (08/26/23 20:33) Cbc And Automated Diff (08/26/23 20:33) Comprehensive Metabolic Panel (08/26/23 20:33) Lipase (08/26/23 20:33) Hcg,Quantitative (08/26/23 20:33) Hs C Reactive Protein (08/26/23 20:33) Ns Iv 1000 Ml (Ns Iv 1000 Ml) (08/26/23 20:33) Lactic Acid Analyzer (08/26/23 20:33) Ua Culture If Indicated (08/26/23 20:41) Blood Culture (08/26/23 20:41) Acetaminophen Tablet (Acetaminophen Ta (08/26/23 21:00) Manual Differential (08/26/23 20:58) Blood Culture (08/26/23 21:09) Urine Culture (08/26/23 20:53) Piperacillin/Tazobactam (Piperacillin/Ta (08/26/23 21:45) Ns Iv 1000 Ml (Ns Iv 1000 Ml) (08/26/23 21:47) Ns Iv 1000 Ml (Ns Iv 1000 Ml) (08/26/23 22:27) Medications Given in ED Vital Signs/I&O Capillary Refill : Departure Communication (PCP) Patient is G5, P2 presents to ED for flulike symptoms. She was seen here yesterday morning had a renal ultrasound that showed severe right hydronephrosis. No evidence of calculi. Transvaginal ultrasound did not show any evidence of intrauterine or ectopic . Beta quant was 29 at that time. Last menstrual cycle 920. Patient was seen at [facility] sent to the ED concern for pyelonephritis. She did receive Rocephin. She was febrile. Had a urinalysis positive for infection . she is currently pain-free but does have a temperature 38.6 C. She is tachycardic. Septic work-up was initiated. Patient states pain has improved. She does have some frequent urination. Denies chest pain cough short of breath sore throat ear pain. Exam was otherwise benign. She does appear ill. White blood count was 16.9 with a left shift. Chemistry showed a potassium of 3.0. Lactic acid 2. Normal liver enzymes and kidney function. CRP 30. She did receive Rocephin at the clinic before arrival. Blood cultures pending. Started on Zosyn. Beta quant 31. Potential early . Concern for early pyelonephritis. She did note to have a stone in a bag at this time. She may still have a stone in her ureter. Patient was discussed with hospitalist Dr. Gardner who refused patient. She suggests going to a facility that has urology services if she does have a stone this may require uroscopy for removal and will need urology consult. She did not feel comfortable keeping patient here at this time. No imaging at this time secondary to potential early . Patient was discussed with [facility]. Patient was excepted by Dr. Lassiter. Patient will be transferred by ground EMS. Septic concern for pyelo versus ureterolithiasis. Heart rate improved as well as her fever after Tylenol. She refused anything for pain as she is currently pain-free Impression Primary Impression: Pyelonephritis Additional Impressions: Sepsis at early stage Disposition: 02 XFER SHT-TRM HOSP Condition: Stable Transfer BH Medically Cleared for Xfer: Yes Transfer Reason: Exceeds level of care Time Spoke to Accepting Phy: 21:51 Transfer Progress Notes Accepted by Dr. Lassiter Transfer Time: 21:51 Transfer Facility: [facility] Method of Transfer: EMS Departure-Patient Inst. Referrals: SOURAV CHARLES MD (PCP/Family) Primary Care Physician CURLY WARE Aug 26, 2023 20:47
[2023-08-26] MEDS ORDERED: ACETAMINOPHEN 500 MG TABLET PO ONE (21:00)
[2023-08-26 21:06] LABS: BASOPHILS % (AUTO) 0 % (0-10); EOSINOPHILS % (AUTO) 0 % (0-10); HEMATOCRIT 42 % (35-52); HEMOGLOBIN 13.9 g/dL (11.5-16.0); LYMPHOCYTES # (AUTO) 0.5 10^3/uL (1.0-4.0); LYMPHOCYTES % (AUTO) 3 % (12-44); MEAN CORPUSCULAR HEMOGLOBIN 29 pg (25-34); MEAN CORPUSCULAR HGB CONC 33 g/dL (32-36); MEAN CORPUSCULAR VOLUME 88 fL (80-99); MEAN PLATELET VOLUME 9.7 fL (9.0-12.2); MONOCYTES # (AUTO) 0.8 10^3/uL (0.0-1.0); MONOCYTES % (AUTO) 5 % (0-12); NEUTROPHILS # (AUTO) 15.3 10^3/uL (1.8-7.8); NEUTROPHILS % (AUTO) 91 % (42-75); PLATELET COUNT 251 10^3/uL (130-400); WHITE BLOOD COUNT 16.9 10^3/uL (4.3-11.0)
[2023-08-26 21:12] LABS: CLARITY,URINE CLEAR; COLOR,URINE YELLOW; GLUCOSE, URINE (UA) NEGATIVE (NEGATIVE); KETONES,URINE 3+ (NEGATIVE); PROTEIN,URINE 3+ (NEGATIVE)
[2023-08-26 21:13] LABS: BACTERIA,URINE MODERATE /HPF; BILIRUBIN,URINE 1+ (NEGATIVE); LEUKOCYTE ESTERASE ,URINE 1+ (NEGATIVE); NITRITE,URINE NEGATIVE (NEGATIVE); WBC,URINE TNTC /HPF
[2023-08-26 21:15] LABS: ALBUMIN 3.7 GM/DL (3.2-4.5)
[2023-08-26 21:18] LABS: TOTAL PROTEIN 7.2 GM/DL (6.4-8.2)
[2023-08-26 21:19] LABS: BILIRUBIN,TOTAL 0.9 MG/DL (0.1-1.0)
[2023-08-26 21:21] LABS: CREATININE SERUM 1.13 MG/DL (0.60-1.30)
[2023-08-26] MEDS ORDERED: PIPERACILLIN/Tazobactam 4.5 GM in NS (IVPB) 100 ML 100 ML IV ONE (21:45)
[2023-08-26 21:52] LABS: BAND NEUTROPHILS 1 %; LYMPHOCYTES % (MANUAL) 5 %; MONOCYTES % (MANUAL) 4 %; NEUTROPHILS % (MANUAL) 90 %; RBC MORPH NORMAL
[2023-08-26] MEDS ORDERED: IBUPROFEN 800 MG TABLET PO ONE (22:15)
== END 2023-08-27 00:10 | disposition short-term general hospital (02) ==
LOC: EDUNIT# 20:28 → ER 20:31
DX: O98.811 Other maternal infectious and parasitic diseases complicating pregnancy, first trimester (principal); N12 Tubulo-interstitial nephritis, not specified as acute or chronic; O26.831 Pregnancy related renal disease, first trimester; Z3A.01 Less than 8 weeks gestation of pregnancy; Z20.822 Contact with and (suspected) exposure to COVID-19
CPT/HCPCS: 36415; 80053; 81000; 83605; 83690; 84702; 85007; 85027; 86141; 87040; 87077; 87088; 87186; 87636; 96361; 96365